=== PATIENT | male | born 1950 | race Caucasian/White ===

== ENCOUNTER → 2018-05-26 | Outpatient (CLI) | payer MEDICARE ==
[~2018-05-26] MED LIST: AMLODIPINE BESYL5 MG PO; ASPIR 8181 MG PO; HYDROCHLOROTHIA25 MG PO; LOSARTAN POTAS100 MG PO; NAPROXEN250 MG PO; PLAVIX75 MG PO; SOTALOL80 MG PO; TIZANIDINE HCL4 MG PO; VALTREX500 MG PO
--- NOTE | 2018-05-26 10:03 | Diagnostic Imaging Report ---
EXAM: Ultrasound retroperitoneum/abdominal aorta INDICATION: Abdominal aortic aneurysm. COMPARISON: None. TECHNIQUE: Limited ultrasound of the retroperitoneum performed to evaluate for abdominal aortic aneurysm. FINDINGS: No evidence of abdominal aortic aneurysm. The proximal abdominal aorta measures up to 2.5 cm, the mid aorta measures up to 2.3 cm, the distal aorta measures up to 1.7 cm. IVC is patent. IMPRESSION: No sonographic evidence of abdominal aortic aneurysm. Signed by: Dr. Anju Vadlez MD on 05/26/2018 10:00 AM
== END ==
LOC: US 08:31
PROVIDERS: ATTEND Family Medicine
DX: I71.4 Abdominal aortic aneurysm, without rupture (principal)
CPT/HCPCS: 76770

== ENCOUNTER → 2020-03-20 | Outpatient (CLI) | payer OTHER ==
[~2020-03-20] MED LIST changes: +COVID-19 VACC, MRNA(MODERNA)/PF 100 MCG/0.5 ML VIAL IM ONE
== END ==
LOC: VACCPMC 11:46
DX: Z23 Encounter for immunization (principal); Z20.828 Contact with and (suspected) exposure to other viral communicable diseases

== ENCOUNTER → 2020-04-23 | Outpatient (CLI) | payer OTHER | END | DRG 951 | LOC: VACCPMC 09:22 | DX: Z23 Encounter for immunization (principal); Z20.822 Contact with and (suspected) exposure to COVID-19 | CPT/HCPCS: 0012A; 91301 ==

== ENCOUNTER → 2021-01-19 | Outpatient (CLI) | payer OTHER | LOC: VACCPMC 09:00 | DX: Z23 Encounter for immunization (principal); Z20.822 Contact with and (suspected) exposure to COVID-19 ==

== ENCOUNTER 2021-10-16 18:41 | Emergency (ER) | payer MEDICARE, OTHER ==
[~2021-10-16] VITALS: Ht 188 cm; Wt 127.0 kg
[~2021-10-16 18:41] MED LIST changes: -COVID-19 VACC, MRNA(MODERNA)/PF 100 MCG/0.5 ML VIAL IM ONE
[2021-10-16] MEDS ORDERED: HYDROMORPHONE 1MG/1ML INJ IV STA (19:30)
[2021-10-16] MEDS ORDERED: BEBTELOVIMAB 175 MG INJ IV ONE (20:00)
== END 2021-10-16 21:10 | disposition home or self-care (01) ==
LOC: ER 18:45
DX: R05.9 Cough, unspecified (principal); U07.1 COVID-19; I10 Essential (primary) hypertension; E11.9 Type 2 diabetes mellitus without complications; E78.5 Hyperlipidemia, unspecified; M10.9 Gout, unspecified
CPT/HCPCS: 99283; U0002

== ENCOUNTER → 2023-09-21 | Outpatient (REF) | payer MEDICARE ==
[~2023-09-21] MED LIST changes: +OXYBUTYNIN CHLOR5 MG PO
== END ==
LOC: CT 11:39
PROVIDERS: ATTEND Internal Medicine Hematology & Oncology
DX: N30.00 Acute cystitis without hematuria (principal)
CPT/HCPCS: 74176